=== PATIENT | male | born 1960 | race Caucasian/White ===

== ENCOUNTER 2016-08-28 18:49 | Emergency (ER) | payer OTHER ==
[~2016-08-28] VITALS: Ht 180.3 cm; Wt 85.0 kg
[~2016-08-28 18:49] MED LIST: BENA25TA3 PO; CEPH-460 PO; PRED20 PO
[2016-08-28 18:51] VITALS: BP 131/73; PULSE 100; RESP 20; TEMP 98.7; O2SAT 89
[2016-08-28] MEDS ORDERED: diphenhydrAMINE HCL 50 MG/ML VIAL IV PUSH ONE (19:30)
[2016-08-28] MEDS ORDERED: methylPREDNISolone SOD SUCC 125 MG/2 ML VIAL IV PUSH ONE (19:30)
--- NOTE | 2016-08-28 20:02 | PD ---
HPI Chief Complaint: Skin Problem Time Seen by Provider: 19:27 Travel History International Travel<30 days: No Contact w/Intl Traveler<30days: No Traveled to known affect area: No History of Present Illness HPI 56-year-old male with history of cellulitis on his left arm seen in May, had been prescribed antibiotics, and he states that since then he had some kind of allergic reaction, had rash, itchiness, scaling and peeling of his skin all over his body, had been followed up by ER physician and primary care doctor, had been prescribed an antibiotic and symptomatic relief for it, but he states that he had ran out antibiotic but the symptoms have not gone away. He denies any difficulty swallowing, sore throat, chest pains, shortness of breath, fevers , or any other symptoms. He states that he is not sure why it is continuing, states that he thinks he is allergic to poison sumac and that may be what's going on. He has been using calamine lotion on the areas. 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) Tetanus Vaccination: Unknown Influenza Vaccination: No Social History Alcohol Use: Yes (8 beers per week) Tobacco Use: Yes (4 per day) Substance Use: No Allergies-Medications (Allergen,Severity, Reaction): Coded Allergies: Cortisone (Verified Allergy, Severe, "Blows me up", 08/28/16) Hydrocortisone (Verified Allergy, Severe, EDEMA, 08/28/16) *MDRO Multi-Drug Resistant Organism (Verified Adverse Reaction, Unknown, ) MRSA (arm-05/09/16) Reported Meds & Prescriptions Reported Meds & Active Scripts Active No Active Prescriptions or Reported Medications Review of Systems Except as stated in HPI: all other systems reviewed are Neg Physical Exam Narrative GENERAL: Well-nourished, well-developed middle age white male patient in no acute distress. SKIN: Warm and dry. Patient has significant scaling erythematous generalized skin rash most pronounced in the arms and legs and up to the posterior trunk areas as well as face. Excluding the palms and soles. HEAD: Normocephalic. EYES: No scleral icterus. No injection or drainage. ENT: Mucosa pink and moist. No erythema or exudates. No uvular edema. No uvular , palatal, or tonsillar deviation. Airway patent. No angioedema. NECK: Supple, trachea midline. CARDIOVASCULAR: Regular rate and rhythm without murmurs, gallops, or rubs. RESPIRATORY: Breath sounds equal bilaterally. No accessory muscle use. GASTROINTESTINAL: Abdomen soft, non-tender, nondistended. MUSCULOSKELETAL: No cyanosis, or edema. BACK: Nontender without obvious deformity. No CVA tenderness. Data Data Last Documented VS Vital Signs Date Time Temp Pulse Resp B/P Pulse Ox O2 Delivery O2 Flow Rate FiO2 08/28/16 19:31 20 08/28/16 18:51 98.7 100 131/73 89 Room Air Orders Complete Blood Count With Diff (08/28/16 19:27) Basic Metabolic Panel (Bmp) (08/28/16 19:27) Blood Culture (08/28/16 19:27) Methylprednisolone So Succ Inj (Solumedr (08/28/16 19:30) Diphenhydramine Inj (Benadryl Inj) (08/28/16 19:30) MDM Medical Decision Making Medical Screen Exam Complete: Yes Emergency Medical Condition: Yes Medical Record Reviewed: Yes Differential Diagnosis Drug eruption versus contact dermatitis versus fungal infection Narrative Course Patient was given Solu-Medrol, Benadryl in the ER. He has no signs of angioedema or mucous membrane involvement. Evaluation of previous visit shows that he has been here for similar symptoms last month as well. Mandatory consult was placed for dermatology for what appears to be ongoing skin reaction to unknown substance. Physician Communication Physician Communication Case is signed out to BRIONNA Briceño awaiting lab work. Diagnosis Primary Impression: Allergic reaction Med/Other Pt SpecificInfo: Prescription(s) given Scripts Diphenhydramine (Benadryl Allergy)25 Mg Tab25 Mg PO Q6H PRN (ALLERGIES) #20 TAB Ref 0 Prov:Dayne Lozano MD 08/28/16 Prednisone (21) 10 mg tab Dose Pack 10 Mg Pack10 Mg PO DIRECTED #1 DSPK Ref 0 Prov:Dayne Lozano MD 08/28/16 Disposition: 01 DISCHARGE HOME Condition: Stable Dayne Lozano MD Aug 28, 2016 20:02
[2016-08-28] MEDS ORDERED: PRED10PA PO (20:54)
[2016-08-28] MEDS ORDERED: BENA25TA3 PO (20:54)
[2016-08-28 21:01] LABS: BICARBONATE 22.6 MEQ/L (21.0-32.0)
[2016-08-28 21:02] LABS: POTASSIUM 4.4 MEQ/L (3.5-5.1)
[2016-08-28 21:27] LABS: CALCIUM-PROTEIN CORRECTED 8.3 MG/DL (8.5-10.1)
[2016-08-28 21:54] LABS: AUTOMATED NEUTROPHIL # 6.9 TH/MM3 (1.8-7.7); BASOPHIL # 0.1 TH/MM3 (0-0.2); BASOPHIL % 0.9 % (0.0-2.0); EOSINOPHIL # 0.9 TH/MM3 (0-0.4); HEMATOCRIT 33.9 % (39.0-51.0); HEMO FLAGS DIFF FINAL; LYMPH % 10.2 % (9.0-44.0); MEAN CELL VOLUME 85.9 FL (80.0-100.0); MEAN CORPUSCULAR HEMOGLOBIN 29.2 PG (27.0-34.0); MEAN CORPUSCULAR HGB CONC 33.9 % (32.0-36.0); MONO % 10.5 % (0.0-8.0); NEUT % 69.4 % (16.0-70.0); PLATELET COUNT 457 TH/MM3 (150-450); RED BLOOD COUNT 3.95 MIL/MM3 (4.50-5.90); RED CELL DISTRIBUTION WIDTH 16.1 % (11.6-17.2)
--- NOTE | 2016-08-28 22:15 | PD ---
Physical Exam Date Seen by Provider: Aug 28, 2016 Time Seen by Provider: 22:09 Data Data Last Documented VS Vital Signs Date Time Temp Pulse Resp B/P Pulse Ox O2 Delivery O2 Flow Rate FiO2 08/28/16 19:31 20 08/28/16 18:51 98.7 100 131/73 89 Room Air Orders Complete Blood Count With Diff (08/28/16 19:27) Basic Metabolic Panel (Bmp) (08/28/16 19:27) Blood Culture (08/28/16 19:27) Methylprednisolone So Succ Inj (Solumedr (08/28/16 19:30) Diphenhydramine Inj (Benadryl Inj) (08/28/16 19:30) Mandatory Outpatient Referral (08/28/16 20:51) Protein Corrected Calcium(Pcc) (08/28/16 20:10) Labs Laboratory Tests Test 08/28/16 08/28/16 20:10 21:00 Sodium Level 133 MEQ/L Potassium Level 4.4 MEQ/L Chloride Level 101 MEQ/L Carbon Dioxide Level 22.6 MEQ/L Anion Gap 9 MEQ/L Blood Urea Nitrogen 9 MG/DL Creatinine 1.17 MG/DL Estimat Glomerular Filtration 64 ML/MIN Rate Random Glucose 72 MG/DL Calcium Level 7.4 MG/DL Protein Corrected Calcium 8.3 MG/DL Total Protein 5.5 GM/DL White Blood Count 10.0 TH/MM3 Red Blood Count 3.95 MIL/MM3 Hemoglobin 11.5 GM/DL Hematocrit 33.9 % Mean Corpuscular Volume 85.9 FL Mean Corpuscular Hemoglobin 29.2 PG Mean Corpuscular Hemoglobin 33.9 % Concent Red Cell Distribution Width 16.1 % Platelet Count 457 TH/MM3 Mean Platelet Volume 6.8 FL Neutrophils (%) (Auto) 69.4 % Lymphocytes (%) (Auto) 10.2 % Monocytes (%) (Auto) 10.5 % Eosinophils (%) (Auto) 9.0 % Basophils (%) (Auto) 0.9 % Neutrophils # (Auto) 6.9 TH/MM3 Lymphocytes # (Auto) 1.0 TH/MM3 Monocytes # (Auto) 1.1 TH/MM3 Eosinophils # (Auto) 0.9 TH/MM3 Basophils # (Auto) 0.1 TH/MM3 CBC Comment DIFF FINAL Differential Comment MDM Supervised Visit with ARTHUR: No Narrative Course This patient was initially evaluated by . Please see her note for full H&P. Lab work was pending when I assumed care of the patient. No leukocytosis or anemia, no concerning abnormalities of the chemistries. Blood cultures pending. Mandatory outpatient follow-up with dermatology placed. Patient was prescribed Benadryl and prednisone. He is stable and discharged for outpatient follow-up with dermatology. Diagnosis Primary Impression: Allergic reaction Qualified Code: T78.40XA - Allergic reaction, initial encounter Referrals: Bicycle Inspector Additional Instruction: Mandatory consult with a snack bar cook has been placed on your behalf. Assure that your contact information with registration is correct. You will receive a phone call from the hospital or the doctor's office in the next few days for a follow-up appointment. In the meantime take cool showers and avoid sun exposure to avoid worsening of the condition. Take medication as prescribed. Follow-up with the snack bar cook as discussed above. Return to the ED for any urgent or emergent medical condition. Med/Other Pt SpecificInfo: Prescription(s) given Scripts Diphenhydramine (Benadryl Allergy)25 Mg Tab25 Mg PO Q6H PRN (ALLERGIES) #20 TAB Ref 0 Prov:Dayne Lozano MD 08/28/16 Prednisone (21) 10 mg tab Dose Pack 10 Mg Pack10 Mg PO DIRECTED #1 DSPK Ref 0 Prov:Dayne Lozano MD 08/28/16 Disposition: 01 DISCHARGE HOME Condition: Stable Keyanna Tillman Aug 28, 2016 22:15
[2016-08-28 22:43] VITALS: BP 114/60
== END 2016-08-29 00:04 | disposition home or self-care (01) ==
LOC: NEPA 18:49
DX: T78.40XA Allergy, unspecified, initial encounter (principal); B95.62 Methicillin resistant Staphylococcus aureus infection as the cause of diseases classified elsewhere
CPT/HCPCS: 80048; 84155; 85025; 86403; 87040; 87077; 87186; 87205; 96374; 96375; 99283; J1200; J2930

== ENCOUNTER 2016-09-03 19:21 | Inpatient (IN) | payer OTHER ==
[~2016-09-03] VITALS: Ht 180.3 cm; Wt 77.9 kg
[~2016-09-03 19:21] MED LIST changes: -CEPH-460 PO; +PRED10PA PO; -PRED20 PO
[2016-09-03 19:23] VITALS: BP 121/69; PULSE 88; RESP 16; TEMP 97.9; O2SAT 96
[2016-09-03 20:13] VITALS: BP 115/69; PULSE 77; RESP 16; O2SAT 98
[2016-09-03] MEDS ORDERED: methylPREDNISolone SOD SUCC 125 MG/2 ML VIAL IV PUSH ONE (20:15)
[2016-09-03] MEDS ORDERED: VANCOMYCIN INJ 1,000 MG in SODIUM CHLOR 0.9% 250 ML INJ 250 ML IV ONE (20:30)
--- NOTE | 2016-09-03 20:35 | PD ---
HPI Chief Complaint: Skin Problem Time Seen by Provider: 20:32 Travel History International Travel<30 days: No Contact w/Intl Traveler<30days: No Traveled to known affect area: No History of Present Illness HPI Patient is a 56-year-old male presenting to the emergency department due to a positive set of blood cultures. Patient was notified this afternoon that he needed to return for reevaluation. He has no new complaints today. He continues to report dry, flaky, itchy skin on his bilateral upper extremities, abdomen, back, legs. He states this started in April after an insect bite. He has no wheezing, shortness of breath, chest pain. He denies any new medications. 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) Immunizations Current: Yes Tetanus Vaccination: Unknown Influenza Vaccination: No Social History Alcohol Use: Yes (8 beers per week) Tobacco Use: Yes (4 per day) Substance Use: No Allergies-Medications (Allergen,Severity, Reaction): Coded Allergies: Cortisone (Verified Allergy, Severe, "Blows me up", 09/03/16) Hydrocortisone (Verified Allergy, Severe, EDEMA, 09/03/16) *MDRO Multi-Drug Resistant Organism (Verified Adverse Reaction, Unknown, ) MRSA:arm-05/09/16, blood-08/28/16 Reported Meds & Prescriptions Reported Meds & Active Scripts Active Review of Systems Except as stated in HPI: all other systems reviewed are Neg Skin: Positive Rash, Positive Itching, Positive Change in Pigmentation Physical Exam Narrative GENERAL: Well-developed, well-nourished, alert male. S2 comfortably in no acute distress. SKIN: Bilateral upper extremities with mild edema, erythema, excoriations. Skin is peeling, appears scalded. Dry flaky skin to anterior chest wall, abdomen, back. HEAD: Atraumatic. Normocephalic. EYES: Pupils equal and round. No scleral icterus. No injection or drainage. ENT: No nasal bleeding or discharge. Mucous membranes pink and moist. NECK: Trachea midline. No JVD. CARDIOVASCULAR: Regular rate and rhythm. No murmur appreciated. RESPIRATORY: No accessory muscle use. Clear to auscultation. Breath sounds equal bilaterally. GASTROINTESTINAL: Abdomen soft, non-tender, nondistended. Hepatic and splenic margins not palpable. MUSCULOSKELETAL: No obvious deformities. No clubbing. No cyanosis. No edema. NEUROLOGICAL: Awake and alert. No obvious cranial nerve deficits. Motor grossly within normal limits. Normal speech. PSYCHIATRIC: Appropriate mood and affect; insight and judgment normal. Data Data Last Documented VS Vital Signs Date Time Temp Pulse Resp B/P Pulse Ox O2 Delivery O2 Flow Rate FiO2 09/03/16 20:13 77 16 09/03/16 20:13 115/69 98 Room Air 09/03/16 19:23 97.9 Orders Blood Culture (09/03/16 20:11) Complete Blood Count With Diff (09/03/16 20:11) Basic Metabolic Panel (Bmp) (09/03/16 20:11) Methylprednisolone So Succ Inj (Solumedr (09/03/16 20:15) Vancomycin Inj (Vancomycin Inj) (09/03/16 20:30) Cetirizine (Zyrtec) (09/03/16 21:00) Labs Laboratory Tests Test 09/03/16 20:30 White Blood Count 11.6 TH/MM3 Red Blood Count 4.16 MIL/MM3 Hemoglobin 12.0 GM/DL Hematocrit 35.6 % Mean Corpuscular Volume 85.5 FL Mean Corpuscular Hemoglobin 28.8 PG Mean Corpuscular Hemoglobin 33.7 % Concent Red Cell Distribution Width 16.0 % Platelet Count 516 TH/MM3 Mean Platelet Volume 6.6 FL Neutrophils (%) (Auto) 59.0 % Lymphocytes (%) (Auto) 17.5 % Monocytes (%) (Auto) 6.5 % Eosinophils (%) (Auto) 16.2 % Basophils (%) (Auto) 0.8 % Neutrophils # (Auto) 6.8 TH/MM3 Lymphocytes # (Auto) 2.0 TH/MM3 Monocytes # (Auto) 0.8 TH/MM3 Eosinophils # (Auto) 1.9 TH/MM3 Basophils # (Auto) 0.1 TH/MM3 CBC Comment DIFF FINAL Differential Comment Sodium Level 136 MEQ/L Potassium Level 4.5 MEQ/L Chloride Level 99 MEQ/L Carbon Dioxide Level 28.1 MEQ/L Anion Gap 9 MEQ/L Blood Urea Nitrogen 11 MG/DL Creatinine 1.17 MG/DL Estimat Glomerular Filtration 64 ML/MIN Rate Random Glucose 80 MG/DL Calcium Level 8.3 MG/DL [facility] Medical Decision Making Medical Screen Exam Complete: Yes Emergency Medical Condition: Yes Medical Record Reviewed: Yes Interpretation(s) Vital Signs Date Time Temp Pulse Resp B/P Pulse Ox O2 Delivery O2 Flow Rate FiO2 09/03/16 20:13 77 16 09/03/16 20:13 77 16 115/69 98 Room Air 09/03/16 19:23 97.9 88 16 121/69 96 Differential Diagnosis Scalded skin syndrome versus dermatitis versus eczema versus bacteremia versus cellulitis versus other Narrative Course Patient is a 56-year-old male presenting to the emergency Department due to a set of positive blood cultures. Blood cultures drawn on 08/28/16, once that was positive for MRSA. Patient has what appears to be scalded skin on his bilateral upper extremities as well as dry flaky skin on his abdomen and chest and back and legs. His vital signs are currently stable. He has mildly elevated white count with left shift. Blood cultures have been repeated, patient was given IV Solu-Medrol and IV vancomycin in the emergency department. Discussed with my attending physician who recommended patient be brought in under observation. Dr. Miller accepted admission on behalf of Dr. Leone. Diagnosis Primary Impression: Positive blood culture Additional Impression: Skin infection Condition: Stable Alexandra Miller Sep 03, 2016 20:35
[2016-09-03 20:45] LABS: AUTOMATED NEUTROPHIL # 6.8 TH/MM3 (1.8-7.7); BASOPHIL # 0.1 TH/MM3 (0-0.2); BASOPHIL % 0.8 % (0.0-2.0); EOSINOPHIL # 1.9 TH/MM3 (0-0.4); EOSINOPHIL % 16.2 % (0.0-4.0); HEMATOCRIT 35.6 % (39.0-51.0); HEMO FLAGS DIFF FINAL; LYMPH % 17.5 % (9.0-44.0); MEAN CELL VOLUME 85.5 FL (80.0-100.0); MEAN CORPUSCULAR HEMOGLOBIN 28.8 PG (27.0-34.0); MEAN CORPUSCULAR HGB CONC 33.7 % (32.0-36.0); MONO % 6.5 % (0.0-8.0); PLATELET COUNT 516 TH/MM3 (150-450); RED BLOOD COUNT 4.16 MIL/MM3 (4.50-5.90); WHITE BLOOD COUNT 11.6 TH/MM3 (4.0-11.0)
[2016-09-03] MEDS ORDERED: CETIRIZINE HCL 10 MG TAB PO ONE (21:00)
[2016-09-03 21:17] LABS: BICARBONATE 28.1 MEQ/L (21.0-32.0); POTASSIUM 4.5 MEQ/L (3.5-5.1)
[2016-09-03] MEDS ORDERED: VANCOMYCIN INJ 1,000 MG in SODIUM CHLOR 0.9% 250 ML INJ 250 ML IV SCH (23:00)
[2016-09-03] MEDS: SODIUM CHLOR 0.45% 1000 ML INJ 1,000 ML IV SCH (23:37)
[2016-09-04 00:59] VITALS: BP 114/66; PULSE 77; RESP 19; TEMP 98.2; O2SAT 93
[2016-09-04 04:26] LABS: HEMATOCRIT 35.6 % (39.0-51.0); MEAN CORPUSCULAR HEMOGLOBIN 28.6 PG (27.0-34.0); MEAN CORPUSCULAR HGB CONC 33.2 % (32.0-36.0); PLATELET COUNT 476 TH/MM3 (150-450); RED BLOOD COUNT 4.14 MIL/MM3 (4.50-5.90); RED CELL DISTRIBUTION WIDTH 16.3 % (11.6-17.2); REVIEW FLAG FINAL; WHITE BLOOD COUNT 9.8 TH/MM3 (4.0-11.0)
[2016-09-04 04:27] VITALS: BP 115/65; PULSE 76; RESP 19; TEMP 98; O2SAT 94
[2016-09-04 04:42] LABS: BICARBONATE 27.3 MEQ/L (21.0-32.0); POTASSIUM 4.3 MEQ/L (3.5-5.1)
--- NOTE | 2016-09-04 10:57 | HHI.HP ---
[facility] Sulaiman Mcqueen M.D. Admission Diagnosis positive blood culture, skin infection Diagnoses: Chief Complaint: Positive blood culture Travel History International Travel<30 Days: No Contact w/Intl Traveler <30 Da: No Traveled to Known Affected Are: No History of Present Illness This is a 56-year-old male who presented to the emergency department after patient was informed that he has positive blood cultures. Of note, patient was initially seen here in April 2016, patient was found to have cellulitis at that time which allegedly started with an insect bite. Wound culture grew MRSA and group A streptococcus. He was started on antibiotics at that time which he finished. After that, he was placed on a second course of antibiotics by Dr. Mcqueen, his primary care physician. In June, he went to the hospital for upper extremity swelling, was found to have another episode of cellulitis, he was discharged from the emergency department with Keflex. He finished his course of Keflex. He was allegedly restarted on antibiotics by his primary care doctor again in July which he finished 2 weeks ago. Subsequently, he presented to the hospital with bilateral upper extremity itching, was thought that he might be having an allergic reaction, discharged from the emergency department on prednisone and Benadryl. Blood culture was done at that time, but culture came back positive for MRSA 1 out of 4 bottles. She was then called to come back to the hospital hence his presentation. He however denies any symptoms other than itching of bilateral upper extremities which has since improved. Patient denies any fever, chills, shortness of breath, urinary symptoms, abdominal pain, diarrhea, skin abscess, or anyone. He has chronic dry cough from smoking. Review of Systems ROS Limitations: Other (All other pertinent systems were reviewed and are negative.) Past Family Social History Past Medical History Melanoma Past Surgical History Globe enucleation with prosthesis placement Reported Medications None Allergies: Coded Allergies: Cortisone (Verified Allergy, Severe, "Blows me up", 09/03/16) Hydrocortisone (Verified Allergy, Severe, EDEMA, 09/03/16) *MDRO Multi-Drug Resistant Organism (Verified Adverse Reaction, Unknown, ) MRSA:arm-05/09/16, blood-08/28/16 Family History No history of diabetes or hypertension in the family. Social History Smokes about 6 cigarettes daily, no significant alcohol use Physical Exam Vital Signs Vital Signs Date Time Temp Pulse Resp B/P Pulse Ox O2 Delivery O2 Flow Rate FiO2 09/04/16 04:27 98.0 76 19 115/65 94 09/04/16 00:59 98.2 77 19 114/66 93 09/03/16 20:13 77 16 09/03/16 20:13 77 16 115/69 98 Room Air 09/03/16 19:23 97.9 88 16 121/69 96 Physical Exam GENERAL: Not in acute distress, well-nourished. HEAD: Atraumatic. Normocephalic. EYES: PERRL, full EOMs, no jaundice, nonicteric, pink conjunctivae , right eye prosthesis. ENT: Nose without bleeding, purulent drainage. Airway patent. NECK: Trachea midline, no mass, no obvious thyromegaly. CARDIOVASCULAR: Regular rate and rhythm without murmurs, gallops, or rubs. RESPIRATORY: Decreased breath sounds symmetrically. GASTROINTESTINAL: Abdomen soft, normal bowel sounds, non-tender, nondistended. No hepato-splenomegaly or palpable mass. No guarding. VASQUEZ and exam deferred. MUSCULOSKELETAL: Extremities without clubbing, cyanosis, or edema. INTEGUMENTARY: Bilateral upper extremities with mild swelling, mild erythema, excoriation, skin is almost leathery, peeling, flaky, mild warmth, no discharge , no crepitus. There is also dry flaky skin anterior chest wall with mild erythema. Bilateral The Same but Less Severe. NEUROLOGICAL: Awake, alert, oriented 3. No obvious cranial nerve deficits. Moves all 4 extremities, muscle strength testing 5 over 5. No focal neurologic deficits. PSYCHIATRIC: Normal mood, appropriate affect. Laboratory Laboratory Tests Test 09/03/16 09/04/16 20:30 03:44 White Blood Count 11.6 9.8 Red Blood Count 4.16 4.14 Hemoglobin 12.0 11.8 Hematocrit 35.6 35.6 Mean Corpuscular Volume 85.5 86.0 Mean Corpuscular Hemoglobin 28.8 28.6 Mean Corpuscular Hemoglobin 33.7 33.2 Concent Red Cell Distribution Width 16.0 16.3 Platelet Count 516 476 Mean Platelet Volume 6.6 6.6 Neutrophils (%) (Auto) 59.0 Lymphocytes (%) (Auto) 17.5 Monocytes (%) (Auto) 6.5 Eosinophils (%) (Auto) 16.2 Basophils (%) (Auto) 0.8 Neutrophils # (Auto) 6.8 Lymphocytes # (Auto) 2.0 Monocytes # (Auto) 0.8 Eosinophils # (Auto) 1.9 Basophils # (Auto) 0.1 CBC Comment DIFF FINAL Differential Comment Sodium Level 136 137 Potassium Level 4.5 4.3 Chloride Level 99 101 Carbon Dioxide Level 28.1 27.3 Anion Gap 9 9 Blood Urea Nitrogen 11 13 Creatinine 1.17 1.14 Estimat Glomerular Filtration 64 66 Rate Random Glucose 80 160 Calcium Level 8.3 8.0 Date/Time Procedure Status Source Growth 09/03/16 20:30 Aerobic Blood Culture Received Blood Peripheral Pending 09/03/16 20:30 Anaerobic Blood Culture Received Blood Peripheral Pending Result Diagram: 09/04/16 0344 09/04/16 0344 Imaging Last Impressions Chest X-Ray 09/04/16 0000 Signed Impressions: Service Date/Time: Sunday, September 04, 2016 11:16 - CONCLUSION: No acute cardiopulmonary disease identified. Alberto Rosales MD Assessment and Plan Assessment and Plan This is a 56-year-old male presenting with a positive blood culture for MRSA Rule out MRSA bacteremia-patient is asymptomatic. Previously had MRSA from cellulitis in May, had 3 courses of antibiotics. Patient presented about a week ago to the emergency department with upper extremity itching, was started on prednisone and Benadryl, these has improved. Blood culture came back positive for MRSA. Check urinalysis, check chest x-ray, repeat blood culture, results pending, start vancomycin for now. Infectious disease was consulted. Leukocytosis very mild, now resolved. Monitor closely. Bilateral upper extremity scaling-needs a formal dermatology consult as outpatient, possible fungal infection as well including anterior chest, will give emollients and miconazole cream, Benadryl for itching. Thrombocytosis-may be a normal variant. Monitor. DVT prophylaxis: Patient is low risk, SCDs. Physician Certification 2 Midnight Certification Type: Admission for Inpatient Services Order for Inpatient Services The services are ordered in accordance with Medicare regulations or non- Medicare payer requirements, as applicable. In the case of services not specified as inpatient-only, they are appropriately provided as inpatient services in accordance with the 2-midnight benchmark. Estimated LOS (days): 2 days is the estimated time the patient will need to remain in the hospital, assuming treatment plan goals are met and no additional complications. Post-Hospital Plan: Home Vladimir Oshea MD Sep 04, 2016 10:57
[2016-09-04] MEDS ORDERED: oxyCODONE/ACETAMINOPHEN 10 MG/325 MG TAB PO PRN (11:00)
[2016-09-04] MEDS ORDERED: NALOXONE HCL 0.4 MG/ML AMP IV PRN (11:00)
[2016-09-04] MEDS ORDERED: Vancomycin Consult Pharmacy 1 EA OTHER SCH (11:00)
[2016-09-04] MEDS ORDERED: ACETAMINOPHEN 325 MG TAB PO PRN (11:00)
[2016-09-04] MEDS ORDERED: ACETAMINOPHEN/HYDROcodone 325 MG/5 MG TAB PO PRN (11:00)
--- NOTE | 2016-09-04 11:53 | RADRPT ---
EXAM DATE/TIME: 09/04/2016 11:16 [facility] COMPARISON: No previous studies available for comparison. INDICATIONS : Evaluate fro consolidation MEDICAL HISTORY : None. SURGICAL HISTORY : None. ENCOUNTER: Initial ACUITY: 1 day PAIN SCORE: 0/10 LOCATION: Bilateral chest FINDINGS: PA and lateral views of the chest. The lungs are clear. Cardiomediastinal silhouette within normal li mits. No evidence of pleural effusion or pneumothorax. CONCLUSION: No acute cardiopulmonary disease identified. Alberto Rosales MD on September 04, 2016 at 11:51 Board Certified Radiologist. This report was verified electronically.
[2016-09-04] MEDS: FAMOTIDINE 20 MG TAB PO SCH ×2 (12:19→19:55)
[2016-09-04] MEDS: SODIUM CHLOR 0.45% 1000 ML INJ 1,000 ML IV SCH (12:19)
[2016-09-04 13:09] VITALS: BP 130/60; PULSE 80; RESP 20; O2SAT 95
[2016-09-04] MEDS ORDERED: diphenhydrAMINE HCL 25 MG CAP PO PRN (14:00)
[2016-09-04] MEDS: VANCOMYCIN INJ 1,500 MG in SODIUM CHLORID 0.9% 500 ML INJ 500 ML IV SCH (14:03)
[2016-09-04] MEDS: LACTIC ACID (AMMONIUM LACTATE) 12% LOTION 225 GM BTL TOPICAL SCH ×4 (15:00→23:24)
--- NOTE | 2016-09-04 15:53 | PD.ID.CON ---
History of Present Illness Service ID Consult Requested By Reason for Consult Evaluation and Mment of MRSA bacteremia, cellulitis. Primary Care Physician Sulaiman Mcqueen M.D. Diagnoses: History of Present Illness Mr. Barker is a 56-year-old male with past medical history significant for melanoma, chronic skin changes started in April 2016, history of recurrent cellulitis with multiple visits to the emergency department. Off note patient was initially seen in April 2016 and he was found to have cellulitis at that time. Allegedly started with an insect bite. Wound cultures grew MRSA and group A strep. Patient was started on antibiotics at that time which he reportedly finished the course. After that his primary care physician Dr. Casey Mcqueen may have given some antibiotics. In June he went to a hospital unknown for eczema and cellulitis and again treated with Keflex. He reports that in July again he was seen by his PCP and underwent a two-week course of antibiotics. He again presented to the hospital with bilateral upper extremity itching more recently and it was thought that maybe he was having an allergic reaction to the antibiotic prescribed and was given prednisone and Benadryl and discharged. Blood culture was done at that time and the culture is now positive for MRSA. He was called back to the hospital due to the positive blood cultures. He denies any symptoms other than itching of bilateral upper extremities which has since improved. He also thinks that his upper extremity cellulitis is improved. He denies any fever or chills shortness of breath or urinary symptoms. He denies any abdominal pain and diarrhea. On further questioning he reports to me that his blood cultures are drawn off another sites on his upper extremities where he has skin lesions. He reports his of dry cough from smoking. He does not know if any vitamin deficiencies. He does not think he has been worked up for a skin diagnosis. Patient was difficult and did not provide much of history. Most of the history was obtained from review of medical records. Patient has never seen a urinalysis technician. He does presents to the emergency department was to his primary care physician. Infectious disease is consulted for evaluation and management of MRSA bacteremia and cellulitis. Review of Systems ROS Limitations: Poor Historian (refused to provide any history most of the history was obtained from review of medical records.) Past Family Social History Allergies: Coded Allergies: Cortisone (Verified Allergy, Severe, "Blows me up", 09/03/16) Hydrocortisone (Verified Allergy, Severe, EDEMA, 09/03/16) *MDRO Multi-Drug Resistant Organism (Verified Adverse Reaction, Unknown, ) MRSA:arm-05/09/16, blood-08/28/16 Past Medical History Melanoma Past Surgical History Globe enucleation with prosthesis placement Reported Medications Reported Meds & Active Scripts Active Active Ordered Medications Current Medications Medications (Trade) Dose Ordered Sig/Zane Route Start Time Stop Time Status Last Admin Famotidine 20 mg 20 mg BID PO 09/04/16 09:00 09/04/16 12:19 Vancomycin HCl 1500 mg/Sodium Chloride 515 ml @ 257.5 mls/ hr Q18H IV 09/04/16 13:00 09/04/16 14:03 (Vancomycin Consult Pharmacy) 0 ml @ 0 mls/hr UNSCH OTHER 09/04/16 11:00 (Tylenol) 650 mg Q6H PRN PO 09/04/16 11:00 (Fowler 5-325 Mg) 1 tab Q4H PRN PO 09/04/16 11:00 (Percocet 10-325 Mg) 1 tab Q6H PRN PO 09/04/16 11:00 (Narcan Inj) 0.4 mg UNSCH PRN IV 09/04/16 11:00 Miscellaneous Information SPECIFIC LAB TO BE DRAWN:[facility]... ONCE ONCE XX 09/06/16 00:45 09/06/16 00:46 (Lac-Hydrin 12% Lotion) 1 applic Q6HR TOPICAL 09/04/16 15:00 (Micatin 2% Cream) 1 applic Q12HR TOPICAL 09/04/16 21:00 (Benadryl) 25 mg Q6HR PRN PO 09/04/16 14:00 (Lac-Hydrin 12% Lotion) 1 applic BID TOPICAL 09/04/16 21:00 UNV Family History Could not be obtained patient not cooperative. Social History Smokes about 6 cigarettes daily, no significant alcohol use. Lives with a partner. Not . Partner is not the power of glassware maker. Physical Exam Vital Signs Vital Signs Date Time Temp Pulse Resp B/P Pulse Ox O2 Delivery O2 Flow Rate FiO2 09/04/16 13:09 80 20 130/60 95 09/04/16 04:27 98.0 76 19 115/65 94 09/04/16 00:59 98.2 77 19 114/66 93 09/03/16 20:13 77 16 09/03/16 20:13 77 16 115/69 98 Room Air 09/03/16 19:23 97.9 88 16 121/69 96 Physical Exam GENERAL: Poorly nourished, well-developed patient, in no apparent distress. SKIN: Chronic dry skin changes. Laying of skin in some places noted. Cracking of skin noted in. Is also perioral dryness. Cracking of the angles of the mouth noted. Patient was picking on his skin during my visit with him. HEAD: Atraumatic. Normocephalic. No temporal or scalp tenderness. EYES: Pupils equal round and reactive. Extraocular motions intact. No scleral icterus. No injection or drainage. ENT: Nose without bleeding, purulent drainage or septal hematoma. Throat without erythema, tonsillar hypertrophy or exudate. Uvula midline. Airway patent. NECK: Trachea midline. Supple, nontender, no meningeal signs. CARDIOVASCULAR: Heart sounds audible. No murmur appreciated. RESPIRATORY: Clear to auscultation. Breath sounds equal bilaterally. GASTROINTESTINAL: Abdomen soft, non-tender, nondistended. MUSCULOSKELETAL: Bilateral lower extremities with significant erythema, edema noted. Patient refused to take his socks and shoes out. Bilateral upper extremity with chronic skin changes. His lower extremities appeared to be the source of infection likely had cellulitis upper extremity with mild cellulitis. NEUROLOGICAL: Awake and alert. Grossly nonfocal. Psych not cooperative at times. Refused to remove her shoes and socks for examination. IV line sites with no evidence of infection. Laboratory Laboratory Tests Test 09/03/16 09/04/16 20:30 03:44 White Blood Count 11.6 9.8 Red Blood Count 4.16 4.14 Hemoglobin 12.0 11.8 Hematocrit 35.6 35.6 Mean Corpuscular Volume 85.5 86.0 Mean Corpuscular Hemoglobin 28.8 28.6 Mean Corpuscular Hemoglobin 33.7 33.2 Concent Red Cell Distribution Width 16.0 16.3 Platelet Count 516 476 Mean Platelet Volume 6.6 6.6 Neutrophils (%) (Auto) 59.0 Lymphocytes (%) (Auto) 17.5 Monocytes (%) (Auto) 6.5 Eosinophils (%) (Auto) 16.2 Basophils (%) (Auto) 0.8 Neutrophils # (Auto) 6.8 Lymphocytes # (Auto) 2.0 Monocytes # (Auto) 0.8 Eosinophils # (Auto) 1.9 Basophils # (Auto) 0.1 CBC Comment DIFF FINAL Differential Comment Sodium Level 136 137 Potassium Level 4.5 4.3 Chloride Level 99 101 Carbon Dioxide Level 28.1 27.3 Anion Gap 9 9 Blood Urea Nitrogen 11 13 Creatinine 1.17 1.14 Estimat Glomerular Filtration 64 66 Rate Random Glucose 80 160 Calcium Level 8.3 8.0 Date/Time Procedure Status Source Growth 09/03/16 20:30 Aerobic Blood Culture - Preliminary Resulted Blood Peripheral NO GROWTH IN 1 DAY 09/03/16 20:30 Anaerobic Blood Culture - Preliminary Resulted Blood Peripheral NO GROWTH IN 1 DAY Result Diagram: 09/04/16 0344 09/04/16 0344 Imaging Last Impressions Chest X-Ray 09/04/16 0000 Signed Impressions: Service Date/Time: Sunday, September 04, 2016 11:16 - CONCLUSION: No acute cardiopulmonary disease identified. Alberto Rosales MD Assessment and Plan Assessment and Plan MRSA bacteremia likely source cellulitis. Bilateral lower extremity cellulitis. Bilateral upper extremity cellulitis. MRSA and strep and upper extremity cultures. Likely infection. Eosinophilia: likely secondary to skin issues. Recs: Continue vancomycin IV target trough 15-20 It is extremely difficult to obtain blood cultures in this patient without having penetrated his already compromised skin. He likely has colonization of MRSA on the skin. Unsure of this MRSA in the blood as true infection or just a contamination while collecting blood culture given his chronic skin condition. On the other hand he does have bilateral lower extremity skin changes suggestive of cellulitis. Unfortunately patient would not let me examine his bilateral lower extremities and requested to socks and shoes. I've asked for a nursing order to have the patient shower as well as have shoes and socks removed and patient be given hospital garments. Hopefully I can examine his bilateral lower extremities tomorrow to make further determination if podiatry consult is needed. For working up his skin conditions I am ordering a zinc level, B12 level, DEN and RA level. Patient definitely needs a referral to dermatology as outpatient to prevent these recurrent admissions. Lac-Hydrin for local application after the patient has a shower. Discussed with patient as well as RN. Cindy Lord MD Sep 04, 2016 15:52
[2016-09-04 18:43] LABS: ALKALINE PHOSPHATASE 123 U/L (45-117); ALT (GPT) 24 U/L (12-78); AST (GOT) 31 U/L (15-37); INDIRECT BILIRUBIN 0.1 MG/DL (0.0-0.8); TOTAL BILIRUBIN ADULT 0.2 MG/DL (0.2-1.0)
[2016-09-04 20:05] VITALS: BP 111/49; PULSE 72; RESP 18; TEMP 99.2; O2SAT 93
[2016-09-04] MEDS: MICONAZOLE NITRATE 2% CREAM 15 GM TOPICAL SCH (23:25)
[2016-09-05 05:39] LABS: AUTOMATED NEUTROPHIL # 6.2 TH/MM3 (1.8-7.7); BASOPHIL # 0.1 TH/MM3 (0-0.2); BASOPHIL % 1.2 % (0.0-2.0); EOSINOPHIL # 0.5 TH/MM3 (0-0.4); EOSINOPHIL % 5.7 % (0.0-4.0); HEMATOCRIT 30.3 % (39.0-51.0); LYMPH % 23.2 % (9.0-44.0); LYMPHOCYTE # 2.2 TH/MM3 (1.0-4.8); MEAN CELL VOLUME 85.5 FL (80.0-100.0); MEAN CORPUSCULAR HEMOGLOBIN 28.7 PG (27.0-34.0); MEAN CORPUSCULAR HGB CONC 33.6 % (32.0-36.0); MONO % 3.6 % (0.0-8.0); NEUT % 66.3 % (16.0-70.0); PLATELET COUNT 465 TH/MM3 (150-450); RED BLOOD COUNT 3.54 MIL/MM3 (4.50-5.90); RED CELL DISTRIBUTION WIDTH 16.2 % (11.6-17.2); WHITE BLOOD COUNT 9.4 TH/MM3 (4.0-11.0)
[2016-09-05 05:50] LABS: HEMO FLAGS AUTO DIFF
[2016-09-05] MEDS: LACTIC ACID (AMMONIUM LACTATE) 12% LOTION 225 GM BTL TOPICAL SCH ×6 (05:50→23:53)
[2016-09-05] MEDS: VANCOMYCIN INJ 1,500 MG in SODIUM CHLORID 0.9% 500 ML INJ 500 ML IV SCH (05:50)
[2016-09-05 06:14] VITALS: BP 101/53; PULSE 76; RESP 18; TEMP 98.1; O2SAT 93
[2016-09-05 06:42] LABS: POTASSIUM 4.1 MEQ/L (3.5-5.1)
[2016-09-05] MEDS: FAMOTIDINE 20 MG TAB PO SCH ×2 (08:57→21:00)
[2016-09-05] MEDS: MICONAZOLE NITRATE 2% CREAM 15 GM TOPICAL SCH ×2 (08:57→22:42)
[2016-09-05 09:09] LABS: BURR CELLS 1+ (NORMAL); PLATELET ESTIMATE SMEAR HIGH (NORMAL); PLATELET MORPHOLOGY NORMAL (NORMAL); SCAN/DIFF AUTO DIFF CONFIRMED
[2016-09-05 10:36] LABS: ANA SCREEN NEG (NEG)
[2016-09-05 11:28] VITALS: BP 126/72; PULSE 87; RESP 19; TEMP 98.1; O2SAT 92
--- NOTE | 2016-09-05 12:33 | HHI.PR ---
Subjective Remarks f/u for possible bacteremia no fever overnight, feels fine,no sob, no urinary symptoms, he says he wants to go home because he needs to work. Objective Vitals Vital Signs Date Time Temp Pulse Resp B/P Pulse Ox O2 Delivery O2 Flow Rate FiO2 09/05/16 11:28 98.1 87 19 126/72 92 09/05/16 06:14 98.1 76 18 101/53 93 09/04/16 20:05 99.2 72 18 111/49 93 09/04/16 13:09 80 20 130/60 95 I/O 09/04/16 09/04/16 09/04/16 09/05/16 09/05/16 09/05/16 07:00 15:00 23:00 07:00 15:00 23:00 Intake Total 842 ml Output Total 300 ml 300 ml Balance 842 ml -300 ml -300 ml Intake IV Total 842 ml Output Urine Total 300 ml 300 ml Result Diagram: 09/05/16 0424 09/05/16419 Objective Remarks GENERAL: Not in acute distress, well-nourished. HEAD: Atraumatic. Normocephalic. EYES: PERRL, full EOMs, no jaundice, nonicteric, pink conjunctivae , right eye prosthesis. CARDIOVASCULAR: Regular rate and rhythm without murmurs, gallops, or rubs. RESPIRATORY: Decreased breath sounds symmetrically. GASTROINTESTINAL: Abdomen soft, normal bowel sounds, non-tender, nondistended. No hepato-splenomegaly or palpable mass. No guarding. VASQUEZ and exam deferred. MUSCULOSKELETAL: Extremities without clubbing, cyanosis, trace edema. INTEGUMENTARY: Bilateral upper extremities with mild swelling, mild erythema, excoriation, skin is almost leathery, peeling, flaky, mild warmth, no discharge , no crepitus. There is also dry flaky skin anterior chest wall with mild erythema. Bilateral lower extremities, also with erythema and mild warmth with flaky skin. - Upper extremities and lower extremities more moist today with Lac- Hydrin. NEUROLOGICAL: Awake, alert, oriented 3. No obvious cranial nerve deficits. Moves all 4 extremities, muscle strength testing 5 over 5. No focal neurologic deficits. PSYCHIATRIC: Normal mood, appropriate affect. A/P Assessment and Plan This is a 56-year-old male presenting with a positive blood culture for MRSA Rule out MRSA bacteremia-patient is asymptomatic. Previously had MRSA from cellulitis in May, had 3 courses of antibiotics. Patient presented about a week ago to the emergency department with upper extremity itching, was started on prednisone and Benadryl, these has improved. Blood culture came back positive for MRSA. Chest x-ray is negative personally reviewed, repeated blood culture negative to date, continue vancomycin for now. Urinalysis pending. Infectious disease following. Follow-up workup including zinc, B-12, DEN, RA, RPR, GC, hepatitis profile. Leukocytosis resolved. Bilateral upper extremity scaling-needs a formal dermatology consult as outpatient, possible fungal infection as well including anterior chest, will give emollients/Lac-Hydrin and miconazole cream, Benadryl for itching. Thrombocytosis-may be a normal variant. Monitor. DVT prophylaxis: Patient is low risk, SCDs. Vladimir Oshea MD Sep 05, 2016 12:33
[2016-09-05 16:41] VITALS: BP 128/77; PULSE 79; RESP 16; TEMP 97.3; O2SAT 95
[2016-09-05 20:00] VITALS: BP 118/75; PULSE 78; RESP 19; TEMP 97.4; O2SAT 96
[2016-09-06] VITALS: BP 140/69; PULSE 74; RESP 17; TEMP 97.2; O2SAT 93
[2016-09-06] MEDS ORDERED: PHARMACY ORDERED LAB XX ONE (00:45)
[2016-09-06] MEDS: VANCOMYCIN INJ 1,500 MG in SODIUM CHLORID 0.9% 500 ML INJ 500 ML IV SCH (03:08)
[2016-09-06 04:00] VITALS: BP 130/79; PULSE 71; RESP 16; TEMP 97.2; O2SAT 93
[2016-09-06] MEDS: LACTIC ACID (AMMONIUM LACTATE) 12% LOTION 225 GM BTL TOPICAL SCH ×2 (06:00→08:20)
[2016-09-06 08:00] VITALS: BP 130/77; PULSE 69; RESP 20; TEMP 97.2; O2SAT 95
[2016-09-06] MEDS: MICONAZOLE NITRATE 2% CREAM 15 GM TOPICAL SCH (08:20)
[2016-09-06] MEDS: FAMOTIDINE 20 MG TAB PO SCH (08:21)
[2016-09-06 12:00] VITALS: BP 129/80; PULSE 76; RESP 20; TEMP 97.3; O2SAT 96
[2016-09-06] MEDS ORDERED: LACT12LO4 TOPICAL (12:51)
[2016-09-06] MEDS ORDERED: BACT800T5 PO (12:51)
[2016-09-06] MEDS ORDERED: SULFAMETHOXAZOLE-TRIMETHOPRIM DS 800-160 MG TAB PO SCH (12:51)
[2016-09-06] MEDS ORDERED: DIPH25CA PO (12:51)
[2016-09-06] MEDS ORDERED: Miconazole 2% Cream TOPICAL (12:51)
--- NOTE | 2016-09-06 12:51 | HHI.IDPN ---
Subjective Subjective Remarks Mr. Barker is a 56-year-old male with past medical history significant for melanoma, chronic skin changes started in April 2016, history of recurrent cellulitis with multiple visits to the emergency department. Off note patient was initially seen in April 2016 and he was found to have cellulitis at that time. Allegedly started with an insect bite. Wound cultures grew MRSA and group A strep. Patient was started on antibiotics at that time which he reportedly finished the course. After that his primary care physician Dr. Casey Mcqueen may have given some antibiotics. In June he went to a hospital unknown for eczema and cellulitis and again treated with Keflex. He reports that in July again he was seen by his PCP and underwent a two-week course of antibiotics. He again presented to the hospital with bilateral upper extremity itching more recently and it was thought that maybe he was having an allergic reaction to the antibiotic prescribed and was given prednisone and Benadryl and discharged. Blood culture was done at that time and the culture is now positive for MRSA. He was called back to the hospital due to the positive blood cultures. He denies any symptoms other than itching of bilateral upper extremities which has since improved. He also thinks that his upper extremity cellulitis is improved. He denies any fever or chills shortness of breath or urinary symptoms. He denies any abdominal pain and diarrhea. On further questioning he reports to me that his blood cultures are drawn off another sites on his upper extremities where he has skin lesions. He reports his of dry cough from smoking. He does not know if any vitamin deficiencies. He does not think he has been worked up for a skin diagnosis. Overnight events reviewed. No fevers No diarrhea Bilateral UE and LE scaling noted. erythema but no warmth. Antibiotics Vanco IV Lines Line sites with no e/o infection Past Medical History reviewed Allergies: Coded Allergies: Cortisone (Verified Allergy, Severe, "Blows me up", 09/03/16) Hydrocortisone (Verified Allergy, Severe, EDEMA, 09/03/16) *MDRO Multi-Drug Resistant Organism (Verified Adverse Reaction, Unknown, ) MRSA:arm-05/09/16, blood-08/28/16 Objective . Vital Signs Date Time Temp Pulse Resp B/P Pulse Ox O2 Delivery O2 Flow Rate FiO2 09/06/16 08:00 97.2 69 20 130/77 95 09/06/16 04:00 97.2 71 16 130/79 93 09/06/16 00:00 97.2 74 17 140/69 93 09/05/16 20:00 97.4 78 19 118/75 96 09/05/16 16:41 97.3 79 16 128/77 95 09/05/16 09/05/16 09/06/16 15:00 23:00 07:00 Intake Total 240 ml Balance 240 ml Intake Oral 240 ml # Voids 1 . Laboratory Tests Test 09/05/16 04:24 White Blood Count 9.4 TH/MM3 Red Blood Count 3.54 MIL/MM3 Hemoglobin 10.2 GM/DL Hematocrit 30.3 % Mean Corpuscular Volume 85.5 FL Mean Corpuscular Hemoglobin 28.7 PG Mean Corpuscular Hemoglobin 33.6 % Concent Red Cell Distribution Width 16.2 % Platelet Count 465 TH/MM3 Mean Platelet Volume 6.8 FL Neutrophils (%) (Auto) 66.3 % Lymphocytes (%) (Auto) 23.2 % Monocytes (%) (Auto) 3.6 % Eosinophils (%) (Auto) 5.7 % Basophils (%) (Auto) 1.2 % Neutrophils # (Auto) 6.2 TH/MM3 Lymphocytes # (Auto) 2.2 TH/MM3 Monocytes # (Auto) 0.3 TH/MM3 Eosinophils # (Auto) 0.5 TH/MM3 Basophils # (Auto) 0.1 TH/MM3 CBC Comment AUTO DIFF Differential Comment AUTO DIFF CONFIRMED Platelet Estimate HIGH Platelet Morphology Comment NORMAL [place] Cells 1+ Laboratory Tests Test 09/05/16 04:20 Sodium Level 139 MEQ/L Potassium Level 4.1 MEQ/L Chloride Level 104 MEQ/L Carbon Dioxide Level 22.0 MEQ/L Anion Gap 13 MEQ/L Blood Urea Nitrogen 12 MG/DL Creatinine 1.07 MG/DL Estimat Glomerular Filtration 71 ML/MIN Rate Random Glucose 87 MG/DL Calcium Level 7.8 MG/DL Microbiology Date/Time Procedure Status Source Growth 09/03/16 20:20 Aerobic Blood Culture - Preliminary Resulted Blood Peripheral NO GROWTH IN 3 DAYS 09/03/16 20:20 Anaerobic Blood Culture - Preliminary Resulted Blood Peripheral NO GROWTH IN 3 DAYS 09/03/16 20:30 Aerobic Blood Culture - Preliminary Resulted Blood Peripheral NO GROWTH IN 3 DAYS 09/03/16 20:30 Anaerobic Blood Culture - Preliminary Resulted Blood Peripheral NO GROWTH IN 3 DAYS Imaging Last Impressions Chest X-Ray 09/04/16 0000 Signed Impressions: Service Date/Time: Sunday, September 04, 2016 11:16 - CONCLUSION: No acute cardiopulmonary disease identified. Alberto Rosales MD Physical Exam GENERAL: Poorly nourished, well-developed patient, in no apparent distress. SKIN: Chronic dry skin changes. Laying of skin in some places noted. Cracking of skin noted in. Is also perioral dryness. Cracking of the angles of the mouth noted. Patient was picking on his skin during my visit with him. HEAD: Atraumatic. Normocephalic. No temporal or scalp tenderness. EYES: Pupils equal round and reactive. Extraocular motions intact. No scleral icterus. No injection or drainage. ENT: Nose without bleeding, purulent drainage or septal hematoma. Throat without erythema, tonsillar hypertrophy or exudate. Uvula midline. Airway patent. NECK: Trachea midline. Supple, nontender, no meningeal signs. CARDIOVASCULAR: Heart sounds audible. No murmur appreciated. RESPIRATORY: Clear to auscultation. Breath sounds equal bilaterally. GASTROINTESTINAL: Abdomen soft, non-tender, nondistended. MUSCULOSKELETAL: Bilateral lower extremities with significant erythema, but no warmth to suggest cellulitis. Bilateral upper extremity with chronic skin changes. His lower extremities appeared to be the source of infection likely had cellulitis upper extremity with mild cellulitis. NEUROLOGICAL: Awake and alert. Grossly nonfocal. Psych not cooperative at times. IV line sites with no evidence of infection. Assessment & Plan Remarks MRSA bacteremia likely source cellulitis. Bilateral lower extremity cellulitis. Bilateral upper extremity cellulitis. MRSA and strep and upper extremity cultures. Likely infection. Eosinophilia: likely secondary to skin issues. Recs: Continue vancomycin IV target trough 15-20 It is extremely difficult to obtain blood cultures in this patient without having penetrated his already compromised skin. He likely has colonization of MRSA on the skin. MRSA in the blood likely contamination while collecting blood culture given his chronic skin condition. Follow zinc level, B12 level, DEN and RA level. Patient needs a referral to dermatology as outpatient to prevent these recurrent admissions. Lac-Hydrin for local application after the patient has a shower. Discussed with patient as well as RN. Examined pt with Dr. Oshea. DC home on Bactrim DS 1 po bid for 10 days (not on CASI-I or K supplements) Will sign off please call back if any change in clinical condition or questions. Cindy Lord MD Sep 06, 2016 12:51
--- NOTE | 2016-09-06 13:49 | HHI.DS ---
Discharge Summary Admission Date Sep 03, 2016 at 22:46 Discharge Date: Sep 06, 2016 Admitting Diagnosis positive blood culture, skin infection (1) Cellulitis ICD Code: L03.90 Diagnosis: Secondary (2) MRSA bacteremia ICD Code: R78.81 Diagnosis: Principal Procedures None Brief History - From Admission This is a 56-year-old male who presented to the emergency department after patient was informed that he has positive blood cultures. Of note, patient was initially seen here in April 2016, patient was found to have cellulitis at that time which allegedly started with an insect bite. Wound culture grew MRSA and group A streptococcus. He was started on antibiotics at that time which he finished. After that, he was placed on a second course of antibiotics by Dr. Mcqueen, his primary care physician. In June, he went to the hospital for upper extremity swelling, was found to have another episode of cellulitis, he was discharged from the emergency department with Keflex. He finished his course of Keflex. He was allegedly restarted on antibiotics by his primary care doctor again in July which he finished 2 weeks ago. Subsequently, he presented to the hospital with bilateral upper extremity itching, was thought that he might be having an allergic reaction, discharged from the emergency department on prednisone and Benadryl. Blood culture was done at that time, but culture came back positive for MRSA 1 out of 4 bottles. She was then called to come back to the hospital hence his presentation. He however denies any symptoms other than itching of bilateral upper extremities which has since improved. Patient denies any fever, chills, shortness of breath, urinary symptoms, abdominal pain, diarrhea, skin abscess, or anyone. He has chronic dry cough from smoking. CBC/BMP: 09/05/16 0424 09/05/16 0420 Significant Findings Laboratory Tests Test 09/03/16 09/04/16 09/05/16 09/05/16 20:30 03:44 04:20 04:24 White Blood Count 11.6 TH/MM3 (4.0-11.0) Red Blood Count 4.16 MIL/MM3 4.14 MIL/MM3 3.54 MIL/MM3 (4.50-5.90) (4.50-5.90) (4.50-5.90) Hemoglobin 12.0 GM/DL 11.8 GM/DL 10.2 GM/DL (13.0-17.0) (13.0-17.0) (13.0-17.0) Hematocrit 35.6 % 35.6 % 30.3 % (39.0-51.0) (39.0-51.0) (39.0-51.0) Platelet Count 516 TH/MM3 476 TH/MM3 465 TH/MM3 (150-450) (150-450) (150-450) Mean Platelet Volume 6.6 FL 6.6 FL 6.8 FL (7.0-11.0) (7.0-11.0) (7.0-11.0) Eosinophils (%) (Auto) 16.2 % 5.7 % (0.0-4.0) (0.0-4.0) Eosinophils # (Auto) 1.9 TH/MM3 0.5 TH/MM3 (0-0.4) (0-0.4) Estimat Glomerular Filtration 64 ML/MIN (>89) 66 ML/MIN (>89) 71 ML/MIN (>89) Rate Calcium Level 8.3 MG/DL 8.0 MG/DL 7.8 MG/DL (8.5-10.1) (8.5-10.1) (8.5-10.1) Random Glucose 160 MG/DL (74-106) Alkaline Phosphatase 123 U/L (45-117) Total Protein 6.0 GM/DL (6.4-8.2) Albumin 2.2 GM/DL (3.4-5.0) Vitamin B12 Level 1206 PG/ML (193-986) Platelet Estimate HIGH (NORMAL) Jed Cells 1+ (NORMAL) Test 09/06/16 02:25 Vancomycin Level Trough 13.7 MCG/ML (5.0-10.0) PE at Discharge GENERAL: Not in acute distress, well-nourished. HEAD: Atraumatic. Normocephalic. EYES: PERRL, full EOMs, no jaundice, nonicteric, pink conjunctivae , right eye prosthesis. CARDIOVASCULAR: Regular rate and rhythm without murmurs, gallops, or rubs. RESPIRATORY: Decreased breath sounds symmetrically. GASTROINTESTINAL: Abdomen soft, normal bowel sounds, non-tender, nondistended. No hepato-splenomegaly or palpable mass. No guarding. VASQUEZ and exam deferred. MUSCULOSKELETAL: Extremities without clubbing, cyanosis, trace edema. INTEGUMENTARY: Bilateral upper extremities with mild swelling, mild erythema, excoriation, skin is almost leathery, peeling, flaky, mild warmth, no discharge , no crepitus. There is also dry flaky skin anterior chest wall with mild erythema. Bilateral lower extremities, also with erythema and mild warmth with flaky skin. - Upper extremities and lower extremities more moist today with Lac- Hydrin. NEUROLOGICAL: Awake, alert, oriented 3. No obvious cranial nerve deficits. Moves all 4 extremities, muscle strength testing 5 over 5. No focal neurologic deficits. PSYCHIATRIC: Normal mood, appropriate affect. Pt update on day of discharge No overnight events, no fever. No diarrhea, chest pain or shortness of breath. Lower extremity pain minimal, stable. Discussed extensively with Hospital Course This is a 56-year-old male presenting with a positive blood culture for MRSA. Previously had MRSA from cellulitis in May, had 3 courses of antibiotics. Patient presented about a week ago to the emergency department with upper extremity itching, was started on prednisone and Benadryl, these has improved. Blood culture came back positive for MRSA. Chest x-ray is negative personally reviewed, repeated blood culture negative to date, patient was empirically started on vancomycin. Workup was negative. Leukocytosis resolved after 1 day. Patient might have mild lower extremity cellulitis, after several days on vancomycin, and discussion with infectious disease, patient will be discharged on Bactrim to finish 10 more days of treatment. He would need a formal dermatology consult as outpatient. He will be discharged on Lac-Hydrin and miconazole cream with Benadryl for itching. Pt Condition on Discharge: Good Discharge Disposition: Discharge Home Discharge Time: > 30 minutes Discharge Instructions DIET: Follow Instructions for: Heart Healthy Diet Activities you can perform: Regular-No Restrictions Follow up Referrals: PCP Follow-up - 1 Week New Medications: Sulfamethoxazole-Trimethoprim (Bactrim DS) 800-160 Mg Tab 1 TAB PO BID Infection #20 Ref 0 TAB Diphenhydramine (Diphenhydramine) 25 Mg Cap 25 MG PO Q6HR PRN itching #30 CAP Lactic Acid (Ammonium Lactate) (Amlactin) 12 % Lot 1 APPLIC TOPICAL BID emolient #1 BOTTLE ([Miconazole 2% Cream]) 15 APPLIC/15 GM CR 1 APPLIC TOPICAL Q12HR #1 TUBE Vladimir Oshea MD Sep 06, 2016 13:49
== END 2016-09-06 15:35 | disposition home or self-care (01) | DRG 603 ==
LOC: NEPA 19:21 → NEDA 21:54 → OBSVTOIN 22:46 → NEPFCDU 23:57 → N04A 09-05 18:58
PROVIDERS: ADMIT Hospitalist; ATTEND Hospitalist
DX: L03.115 Cellulitis of right lower limb (principal); D72.1 Eosinophilia; L03.113 Cellulitis of right upper limb; L03.114 Cellulitis of left upper limb; L03.116 Cellulitis of left lower limb; F17.210 Nicotine dependence, cigarettes, uncomplicated; D75.89 Other specified diseases of blood and blood-forming organs; B95.62 Methicillin resistant Staphylococcus aureus infection as the cause of diseases classified elsewhere; Z22.322 Carrier or suspected carrier of Methicillin resistant Staphylococcus aureus; Z86.14 Personal history of Methicillin resistant Staphylococcus aureus infection; Z85.820 Personal history of malignant melanoma of skin; Z90.01 Acquired absence of eye; Z88.8 Allergy status to other drugs, medicaments and biological substances
CPT/HCPCS: 71020; 80048; 80074; 80076; 80202; 82607; 84630; 85025; 85027; 86038; 86592; 87040; 96365; 96375; J2930; J3370; J7040; J7050

== ENCOUNTER 2016-11-25 13:44 | Emergency (ER) | payer OTHER ==
[~2016-11-25] VITALS: Ht 180.3 cm; Wt 75.0 kg
[~2016-11-25 13:44] MED LIST changes: +BACT800T5 PO; -BENA25TA3 PO; +DIPH25CA PO; +LACT12LO4 TOPICAL; +Miconazole 2% Cream TOPICAL; -PRED10PA PO
[2016-11-25 13:46] VITALS: BP 149/79; PULSE 86; RESP 20; TEMP 98.4; O2SAT 98
--- NOTE | 2016-11-25 14:00 | PD ---
Physical Exam Date Seen by Provider: November 25, 2016 Time Seen by Provider: 13:58 Narrative 56 YOWM L GROIN SWELLING TENDER TO THE TOUCH FOR 2 WEEKS. NO F/C/N/V. PAIN 09/23. VSS wating for bed asignment Data Data Last Documented VS Vital Signs Date Time Temp Pulse Resp B/P Pulse Ox O2 Delivery O2 Flow Rate FiO2 11/25/16 13:46 98.4 86 20 149/79 98 Room Air [facility] Medical Record Reviewed: No Supervised Visit with ARTHUR: Charlie Sutherland November 25, 2016 14:00
--- NOTE | 2016-11-25 14:46 | PD ---
HPI Chief Complaint: Lump, Cyst, Hernia Time Seen by Provider: 14:45 Travel History International Travel<30 days: No Contact w/Intl Traveler<30days: No Traveled to known affect area: No History of Present Illness HPI 56-year-old male came to the emergency room with history of a lump on his left groin that apparently has been there for 2 weeks. Denies any pain, fever or chills. Patient says this has been there and has been growing in size. Today decided to come to the emergency room and get it checked. No history of weight loss. No history of vomiting or diarrhea. Vital signs are relatively stable. AST of any corresponding leg infection or a bite or scratch wound from an animal. PFSH Past Medical History Narrative Medical List of his past medical, surgical, social and family history was reviewed from the nursing note. Blood Disorders: No Cancer: Yes (Right eye) Cardiovascular Problems: No Endocrine: No Genitourinary: No Immune Disorder: No Musculoskeletal: No Neurologic: No Psychiatric: No Reproductive: No Respiratory: No Immunizations Current: Yes Past Surgical History Abdominal Surgery: No Cardiac Surgery: No Ear Surgery: No Endocrine Surgery: No Eye Surgery: No Genitourinary Surgery: No Gynecologic Surgery: No Oral Surgery: No Thoracic Surgery: No Social History Alcohol Use: Yes (8 beers per week) Tobacco Use: Yes (4 per day) Substance Use: No Allergies-Medications (Allergen,Severity, Reaction): Coded Allergies: Cortisone (Verified Allergy, Severe, "Blows me up", 11/27/16) Hydrocortisone (Verified Allergy, Severe, EDEMA, 11/27/16) *MDRO Multi-Drug Resistant Organism (Verified Adverse Reaction, Unknown, ) MRSA:arm-05/09/16, blood-08/28/16, groin-11/25/16 Comments List of his allergies reviewed from the nursing note. Reported Meds & Prescriptions Reported Meds & Active Scripts Active Bactrim DS (Sulfamethoxazole-Trimethoprim) 800-160 Mg Tab 1 Tab PO BID Clindamycin (Clindamycin HCl) 300 Mg Cap 300 Mg PO TID Narrative Medication List of his home medications reviewed from the nursing note. Review of Systems Except as stated in HPI: all other systems reviewed are Neg Physical Exam Narrative GENERAL: Awake, alert, no obvious distress SKIN: Focused skin assessment warm/dry. Vitiligo. Left groin area has a 7 cm x 4 cm firm, immobile mass that has slight fluctuance he and slight erythema of the skin anteriorly. HEAD: Atraumatic. Normocephalic. EYES: Pupils equal and round. No scleral icterus. No injection or drainage. ENT: No nasal bleeding or discharge. Mucous membranes pink and moist. NECK: Trachea midline. No JVD. CARDIOVASCULAR: Regular rate and rhythm. No murmur appreciated. RESPIRATORY: No accessory muscle use. Clear to auscultation. Breath sounds equal bilaterally. GASTROINTESTINAL: Abdomen soft, non-tender, nondistended. Hepatic and splenic margins not palpable. MUSCULOSKELETAL: No obvious deformities. No clubbing. No cyanosis. No edema. NEUROLOGICAL: Awake and alert. No obvious cranial nerve deficits. Motor grossly within normal limits. Normal speech. PSYCHIATRIC: Appropriate mood and affect; insight and judgment normal. Data Data Last Documented VS Vital Signs Date Time Temp Pulse Resp B/P Pulse Ox O2 Delivery O2 Flow Rate FiO2 11/25/16 17:12 75 18 134/88 95 11/25/16 13:46 98.4 Room Air Orders Basic Metabolic Panel (Bmp) (11/25/16 14:57) Complete Blood Count With Diff (11/25/16 14:57) Prothrombin Time / Inr (Pt) (11/25/16 14:57) Ct Abd/Pel W Iv Contrast(Rout) (11/25/16 14:57) Iv Access Insert/Monitor (11/25/16 14:57) Ecg Monitoring (11/25/16 14:57) Oximetry (11/25/16 14:57) Sodium Chloride 0.9% Flush (Ns Flush) (11/25/16 15:00) Us Testicles W Doppler (11/25/16 ) Ct Femur W Iv Contrast (11/25/16 ) Sodium Chlorid 0.9% 500 Ml Inj (Ns 500 M (11/25/16 16:15) Iohexol 350 Inj (Omnipaque 350 Inj) (11/25/16 18:44) Lidocai-Epi 1%-1:100,000 Inj (Xylocaine- (11/25/16 19:15) Wound Culture And Gram Stain (11/25/16 19:11) Labs Laboratory Tests Test 11/25/16 15:25 White Blood Count 14.7 TH/MM3 Red Blood Count 4.07 MIL/MM3 Hemoglobin 11.4 GM/DL Hematocrit 33.8 % Mean Corpuscular Volume 82.9 FL Mean Corpuscular Hemoglobin 27.9 PG Mean Corpuscular Hemoglobin 33.7 % Concent Red Cell Distribution Width 16.2 % Platelet Count 472 TH/MM3 Mean Platelet Volume 6.4 FL Neutrophils (%) (Auto) 74.6 % Lymphocytes (%) (Auto) 13.5 % Monocytes (%) (Auto) 4.8 % Eosinophils (%) (Auto) 5.9 % Basophils (%) (Auto) 1.2 % Neutrophils # (Auto) 11.0 TH/MM3 Lymphocytes # (Auto) 2.0 TH/MM3 Monocytes # (Auto) 0.7 TH/MM3 Eosinophils # (Auto) 0.9 TH/MM3 Basophils # (Auto) 0.2 TH/MM3 CBC Comment DIFF FINAL Differential Comment Prothrombin Time 10.9 SEC Prothromb Time International 1.0 RATIO Ratio Sodium Level 130 MEQ/L Potassium Level 4.6 MEQ/L Chloride Level 94 MEQ/L Carbon Dioxide Level 28.3 MEQ/L Anion Gap 8 MEQ/L Blood Urea Nitrogen 15 MG/DL Creatinine 0.76 MG/DL Estimat Glomerular Filtration 106 ML/MIN Rate Random Glucose 84 MG/DL Calcium Level 9.3 MG/DL [facility] Medical Decision Making Medical Screen Exam Complete: Yes Emergency Medical Condition: Yes Differential Diagnosis Malignancy, abscess, lymphadenopathy Narrative Course 4:40 PM awaiting for the CAT scan and ultrasound to be done and resulted. Blood test shows elevated white blood cell count. I will add a CRP. Patient is getting a testicular ultrasound as well. 5:06 PM ultrasound report is back which shows bilateral hydroceles. Awaiting for the CAT scan to be done and resulted. Case has been signed over to the oncoming ER physician. Procedures EKG Prior to Arrival: No Scripts Clindamycin 300 Mg [id number] Mg PO TID #21 CAP Ref 0 Prov:Sangita Cavazos MD 11/25/16 Kim Espinosa MD November 25, 2016 14:46
[2016-11-25] MEDS ORDERED: SODIUM CHLORIDE 0.9% FLUSH 10 ML FLUSH IV FLUSH PRN (15:00)
[2016-11-25 15:45] LABS: BASOPHIL # 0.2 TH/MM3 (0-0.2); BASOPHIL % 1.2 % (0.0-2.0); EOSINOPHIL # 0.9 TH/MM3 (0-0.4); EOSINOPHIL % 5.9 % (0.0-4.0); HEMATOCRIT 33.8 % (39.0-51.0); HEMO FLAGS DIFF FINAL; LYMPH % 13.5 % (9.0-44.0); MEAN CELL VOLUME 82.9 FL (80.0-100.0); MEAN CORPUSCULAR HEMOGLOBIN 27.9 PG (27.0-34.0); MEAN CORPUSCULAR HGB CONC 33.7 % (32.0-36.0); MONO % 4.8 % (0.0-8.0); NEUT % 74.6 % (16.0-70.0); PLATELET COUNT 472 TH/MM3 (150-450); RED BLOOD COUNT 4.07 MIL/MM3 (4.50-5.90); RED CELL DISTRIBUTION WIDTH 16.2 % (11.6-17.2); WHITE BLOOD COUNT 14.7 TH/MM3 (4.0-11.0)
[2016-11-25 15:47] LABS: PROTHROMBIN TIME - PATIENT 10.9 SEC (9.8-11.6)
[2016-11-25 16:09] LABS: BICARBONATE 28.3 MEQ/L (21.0-32.0); POTASSIUM 4.6 MEQ/L (3.5-5.1)
[2016-11-25] MEDS ORDERED: SODIUM CHLORID 0.9% 500 ML INJ 500 ML IV ONE (16:15)
--- NOTE | 2016-11-25 16:51 | RADRPT ---
EXAM DATE/TIME: 11/25/2016 15:51 [facility] COMPARISON: No previous studies available for comparison. INDICATIONS : Scrotal swelling. MEDICAL HISTORY : Right eye cancer. MRSA. Testicle pain. SURGICAL HISTORY : Right eye surgery. ENCOUNTER: Initial ACUITY: 1 day PAIN SCORE: 0/10 LOCATION: Bilateral Scrotum. MEASUREMENTS: RIGHT TESTICLE: 3.9 x 3.2 x 2.8cm LEFT TESTICLE: 3.7 x 2.6 x 2.8cm FINDINGS: RIGHT TESTICLE: Large hydrocele is noted. Good flow is evident. LEFT TESTICLE: Large hydrocele is noted. Testicle is minimally inhomogeneous. Flow is evident. This is nonspecifi c. SCROTUM: Within normal limits. CONCLUSION: Large bilateral hydroceles. There is no evidence for torsion. Angelo Clements MD FACR on November 25, 2016 at 16:47 Board Certified Radiologist. This report was verified electronically.
[2016-11-25 17:12] VITALS: BP 134/88; PULSE 75; RESP 18; O2SAT 95
--- NOTE | 2016-11-25 17:48 | PD ---
Data Data Last Documented VS Vital Signs Date Time Temp Pulse Resp B/P Pulse Ox O2 Delivery O2 Flow Rate FiO2 11/25/16 17:12 75 18 134/88 95 11/25/16 13:46 98.4 Room Air Orders Basic Metabolic Panel (Bmp) (11/25/16 14:57) Complete Blood Count With Diff (11/25/16 14:57) Prothrombin Time / Inr (Pt) (11/25/16 14:57) Ct Abd/Pel W Iv Contrast(Rout) (11/25/16 14:57) Iv Access Insert/Monitor (11/25/16 14:57) Ecg Monitoring (11/25/16 14:57) Oximetry (11/25/16 14:57) Sodium Chloride 0.9% Flush (Ns Flush) (11/25/16 15:00) Us Testicles W Doppler (11/25/16 ) Ct Femur W Iv Contrast (11/25/16 ) Sodium Chlorid 0.9% 500 Ml Inj (Ns 500 M (11/25/16 16:15) Iohexol 350 Inj (Omnipaque 350 Inj) (11/25/16 18:44) Lidocai-Epi 1%-1:100,000 Inj (Xylocaine- (11/25/16 19:15) Wound Culture And Gram Stain (11/25/16 19:11) Labs Laboratory Tests Test 11/25/16 15:25 White Blood Count 14.7 TH/MM3 Red Blood Count 4.07 MIL/MM3 Hemoglobin 11.4 GM/DL Hematocrit 33.8 % Mean Corpuscular Volume 82.9 FL Mean Corpuscular Hemoglobin 27.9 PG Mean Corpuscular Hemoglobin 33.7 % Concent Red Cell Distribution Width 16.2 % Platelet Count 472 TH/MM3 Mean Platelet Volume 6.4 FL Neutrophils (%) (Auto) 74.6 % Lymphocytes (%) (Auto) 13.5 % Monocytes (%) (Auto) 4.8 % Eosinophils (%) (Auto) 5.9 % Basophils (%) (Auto) 1.2 % Neutrophils # (Auto) 11.0 TH/MM3 Lymphocytes # (Auto) 2.0 TH/MM3 Monocytes # (Auto) 0.7 TH/MM3 Eosinophils # (Auto) 0.9 TH/MM3 Basophils # (Auto) 0.2 TH/MM3 CBC Comment DIFF FINAL Differential Comment Prothrombin Time 10.9 SEC Prothromb Time International 1.0 RATIO Ratio Sodium Level 130 MEQ/L Potassium Level 4.6 MEQ/L Chloride Level 94 MEQ/L Carbon Dioxide Level 28.3 MEQ/L Anion Gap 8 MEQ/L Blood Urea Nitrogen 15 MG/DL Creatinine 0.76 MG/DL Estimat Glomerular Filtration 106 ML/MIN Rate Random Glucose 84 MG/DL Calcium Level 9.3 MG/DL MDM Supervised Visit with ARTHUR: No Narrative Course Patient sinus to me by previous provider. Please see associated no for further details. In short patient is a 56-year-old male with 2 weeks of a lump to the left groin region. This is nontender but is slightly fluctuant on exam. Fairly fixed. No testicular pain. No fevers or chills. Previous provider had concerns that this is potentially malignant given the fixed, adherent portion versus abscess given fluctuance on exam. Laboratory workup notable for slightly elevated WBC, platelets. Testicular ultrasound with bilateral hydrocele, large but no evidence of torsion or mass. Patient signed out to me pending CT abdomen, pelvis, femur. CT results showed a 6 cm abscess versus liquefied hematoma in the left groin. Otherwise unremarkable. I&D performed, please see procedure note. Patient started on antibiotics and discharged home. Diagnosis Primary Impression: Abscess of left groin Additional Instruction: Antibiotics as prescribed. Return to the emergency department on Monday evening for packing removal and wound recheck. Med/Other Pt SpecificInfo: Prescription(s) given Scripts Clindamycin 300 Mg [id number] Mg PO TID #21 CAP Ref 0 Prov:Sangita Cavazos MD 11/25/16 Disposition: 01 DISCHARGE HOME Condition: Stable Sangita Cavazos MD November 25, 2016 17:48
[2016-11-25] MEDS ORDERED: IOHEXOL 350 MG/ML 10 ML VIAL (for RAD DIAG) IV ONE (18:44)
--- NOTE | 2016-11-25 19:05 | RADRPT ---
EXAM DATE/TIME: 11/25/2016 18:24 [facility] COMPARISON: No previous studies available for comparison. INDICATIONS : Left groin swelling. IV CONTRAST: 98 cc Omnipaque 350 (iohexol) IV ; Cumulative dose for multiple exams. ORAL CONTRAST: No oral contrast ingested. RADIATION DOSE: 8.21 CTDIvol (mGy) MEDICAL HISTORY : Methicillin-resistant Staphylococcus aureus. SURGICAL HISTORY : None. ENCOUNTER: Initial ACUITY: 2 weeks PAIN SCALE: 0/10 LOCATION: lower quadrant TECHNIQUE: Volumetric scanning of the abdomen and pelvis was performed. Using automated exposure control and ad justment of the mA and/or kV according to patient size, radiation dose was kept as low as reasonably achievable to obtain optimal diagnostic quality images. FINDINGS: LOWER LUNGS: Mild atelectasis in the lung bases. LIVER: Homogeneous density without lesion. There is no dilation of the biliary tree. No calcified gallston es. SPLEEN: Normal size without lesion. PANCREAS: Within normal limits. KIDNEYS: Bilateral renal cysts. No evidence of kidney stone or hydronephrosis. ADRENAL GLANDS: Within normal limits. VASCULAR: There is no aortic aneurysm. BOWEL/MESENTERY: Colonic diverticula. No abnormal dilatation, wall thickening or focal inflammatory change. ABDOMINAL WALL: Within normal limits. RETROPERITONEUM: There is no lymphadenopathy. BLADDER: No wall thickening or mass. REPRODUCTIVE: Within normal limits. INGUINAL: There is a 6 cm mass/collection in the right inguinal region. Surrounding fatty tissue edema. Central low density suggests this may be an abscess versus liquefying hematoma. There are mildly enlarged pr esumed reactive lymph nodes in the adjacent inguinal tissues. MUSCULOSKELETAL: Within normal limits for patient age. CONCLUSION: 6 cm mass/collection in the left inguinal region is likely abscess or a liquefied hematoma. Fernie Nevarez MD on November 25, 2016 at 18:59 Board Certified Radiologist. This report was verified electronically.
--- NOTE | 2016-11-25 19:09 | RADRPT ---
EXAM DATE/TIME: 11/25/2016 18:24 [facility] COMPARISON: No previous studies available for comparison. INDICATIONS : Left groin swelling. IV CONTRAST: 98 cc Omnipaque 350 (iohexol) IV ; Cumulative dose for multiple exams. RADIATION DOSE: 10.62 CTDIvol (mGy) MEDICAL HISTORY : Methicillin-resistant Staphylococcus aureus. SURGICAL HISTORY : None. ENCOUNTER: Initial ACUITY: 2 weeks PAIN SCALE: 0/10 LOCATION: Left inguinal TECHNIQUE: Volumetric scanning of the femur was performed. Using automated exposure control and adjustment of t he mA and/or kV according to patient size, radiation dose was kept as low as reasonably achievable to obtain optimal diagnostic quality images. FINDINGS: BONES: No evidence of fracture. Alignment is within normal limits. JOINTS: No evidence of joint narrowing or effusion. SOFT TISSUES: There is a mass/collection in the left inguinal region. See report of CT abdomen pelvis for further d etails. CONCLUSION: Left inguinal mass/collection. Femur and thigh are unremarkable Fernie Nevarez MD on November 25, 2016 at 19:06 Board Certified Radiologist. This report was verified electronically.
[2016-11-25] MEDS ORDERED: CLIN1CAP6 PO (19:12)
[2016-11-25] MEDS ORDERED: LIDOCAINE 1%/EPINEPHrine 1:100,000 SOLN 20 ML VIAL INFIL ONE (19:15)
--- NOTE | 2016-11-25 19:33 | PD ---
Physical Exam Date Seen by Provider: November 25, 2016 Time Seen by Provider: 19:32 Narrative I was asked by Dr. Cavazos to incise and drain abscess to the patient's left groin. Please see her documentation for full history and physical. Data Data Last Documented VS Vital Signs Date Time Temp Pulse Resp B/P Pulse Ox O2 Delivery O2 Flow Rate FiO2 11/25/16 17:12 75 18 134/88 95 11/25/16 13:46 98.4 Room Air Orders Basic Metabolic Panel (Bmp) (11/25/16 14:57) Complete Blood Count With Diff (11/25/16 14:57) Prothrombin Time / Inr (Pt) (11/25/16 14:57) Ct Abd/Pel W Iv Contrast(Rout) (11/25/16 14:57) Iv Access Insert/Monitor (11/25/16 14:57) Ecg Monitoring (11/25/16 14:57) Oximetry (11/25/16 14:57) Sodium Chloride 0.9% Flush (Ns Flush) (11/25/16 15:00) Us Testicles W Doppler (11/25/16 ) Ct Femur W Iv Contrast (11/25/16 ) Sodium Chlorid 0.9% 500 Ml Inj (Ns 500 M (11/25/16 16:15) Iohexol 350 Inj (Omnipaque 350 Inj) (11/25/16 18:44) Lidocai-Epi 1%-1:100,000 Inj (Xylocaine- (11/25/16 19:15) Wound Culture And Gram Stain (11/25/16 19:11) Labs Laboratory Tests Test 11/25/16 15:25 White Blood Count 14.7 TH/MM3 Red Blood Count 4.07 MIL/MM3 Hemoglobin 11.4 GM/DL Hematocrit 33.8 % Mean Corpuscular Volume 82.9 FL Mean Corpuscular Hemoglobin 27.9 PG Mean Corpuscular Hemoglobin 33.7 % Concent Red Cell Distribution Width 16.2 % Platelet Count 472 TH/MM3 Mean Platelet Volume 6.4 FL Neutrophils (%) (Auto) 74.6 % Lymphocytes (%) (Auto) 13.5 % Monocytes (%) (Auto) 4.8 % Eosinophils (%) (Auto) 5.9 % Basophils (%) (Auto) 1.2 % Neutrophils # (Auto) 11.0 TH/MM3 Lymphocytes # (Auto) 2.0 TH/MM3 Monocytes # (Auto) 0.7 TH/MM3 Eosinophils # (Auto) 0.9 TH/MM3 Basophils # (Auto) 0.2 TH/MM3 CBC Comment DIFF FINAL Differential Comment Prothrombin Time 10.9 SEC Prothromb Time International 1.0 RATIO Ratio Sodium Level 130 MEQ/L Potassium Level 4.6 MEQ/L Chloride Level 94 MEQ/L Carbon Dioxide Level 28.3 MEQ/L Anion Gap 8 MEQ/L Blood Urea Nitrogen 15 MG/DL Creatinine 0.76 MG/DL Estimat Glomerular Filtration 106 ML/MIN Rate Random Glucose 84 MG/DL Calcium Level 9.3 MG/DL MDM Supervised Visit with ARTHUR: No Procedures Procedure Narrative INCISION AND DRAINAGE OF ABSCESS: The area was prepped and was sterilely draped. A subcutaneous wheal of 1% Xylocaine with epinephrine with a total number 6 mL was used to anesthetize the area. The area was properly anesthetized. A number 11 scalpel was used to make a 1 -cm incision across the area of the abscess. Cultures were obtained. The abscess was drained an irrigated with normal saline. Quarter inch iodoform packing was placed in the wound. Sterile dressing applied. Patient advised to have packing removed in two days. Diagnosis Primary Impression: Abscess of left groin Additional Instruction: Antibiotics as prescribed. Return to the emergency department on Monday evening for packing removal and wound recheck. Scripts Clindamycin 300 Mg [id number] Mg PO TID #21 CAP Ref 0 Prov:Sangita Cavazos MD 11/25/16 Disposition: 01 DISCHARGE HOME Condition: Stable IndraMalgorzata November 25, 2016 19:33
== END 2016-11-25 20:12 | disposition home or self-care (01) ==
LOC: NEPD 13:44
DX: L02.214 Cutaneous abscess of groin (principal); F17.210 Nicotine dependence, cigarettes, uncomplicated; N43.3 Hydrocele, unspecified; B95.62 Methicillin resistant Staphylococcus aureus infection as the cause of diseases classified elsewhere
CPT/HCPCS: 10061; 73701; 74177; 76870; 80048; 85025; 85610; 86403; 87070; 87186; 93975; 96360; 99283; J7040; Q9967; 87205

== ENCOUNTER 2016-11-27 20:26 | Emergency (ER) | payer OTHER ==
[~2016-11-27] VITALS: Ht 180.3 cm; Wt 85.0 kg
[~2016-11-27 20:26] MED LIST changes: -BACT800T5 PO; +CLIN1CAP6 PO; -DIPH25CA PO; -LACT12LO4 TOPICAL; -Miconazole 2% Cream TOPICAL
[2016-11-27 20:28] VITALS: BP 130/73; PULSE 16; PULSE 96; RESP 16; TEMP 98.1; O2SAT 99
[2016-11-27] MEDS ORDERED: BACT800T5 PO (20:42)
--- NOTE | 2016-11-27 20:46 | PD ---
HPI Chief Complaint: Wound/Suture/Staple Re-Check Time Seen by Provider: 20:43 Travel History International Travel<30 days: No Contact w/Intl Traveler<30days: No Traveled to known affect area: No History of Present Illness HPI 56-year-old white male presents to emergency department for a recheck of an abscess in his left groin. States that he is here to have the packing removed. Pain is improved. He still had some slight drainage but much improved. No fever or chills. Pain is mild. PFSH Past Medical History Blood Disorders: No Cancer: Yes (Right eye) Cardiovascular Problems: No Diminished Hearing: No Endocrine: No Genitourinary: No Immune Disorder: No Implanted Vascular Access Dvce: No Musculoskeletal: No Neurologic: No Psychiatric: No Reproductive: No Respiratory: No Immunizations Current: Yes Past Surgical History Abdominal Surgery: No Cardiac Surgery: No Ear Surgery: No Endocrine Surgery: No Eye Surgery: Yes (R EYE SURGERY) Genitourinary Surgery: No Gynecologic Surgery: No Oral Surgery: No Thoracic Surgery: No Social History Alcohol Use: Yes (8 beers per week) Tobacco Use: Yes (4 per day) Substance Use: No Allergies-Medications (Allergen,Severity, Reaction): Coded Allergies: Cortisone (Verified Allergy, Severe, "Blows me up", 11/27/16) Hydrocortisone (Verified Allergy, Severe, EDEMA, 11/27/16) *MDRO Multi-Drug Resistant Organism (Verified Adverse Reaction, Unknown, ) 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 SKIN: Hypopigmented skin consistent with vitiligo, ecchymoses or lesions. Warm and dry. Draining abscess in the left groin. Skin is indurated, erythematous and mildly tender. No fluctuance or pointing. Packing in place. HEAD: Atraumatic. Normocephalic. EYES: PERRL, EOMI, no discharge or injection. No scleral icterus. EARS: Clear NOSE: Nasal turbinates appear normal. THROAT: Mucosa pink and moist. Airway patent. NECK: Trachea midline. supple, moves head freely. LUNGS: Clear to auscultation. CV: Regular in rhythm. ABDOMEN: Soft nontender. EXT: No clubbing cyanosis or edema. Data Data Last Documented VS Vital Signs Date Time Temp Pulse Resp B/P Pulse Ox O2 Delivery O2 Flow Rate FiO2 11/27/16 20:42 20 11/27/16 20:28 98.1 96 130/73 99 Room Air MDM Medical Decision Making Medical Screen Exam Complete: Yes Emergency Medical Condition: Yes Medical Record Reviewed: Yes Differential Diagnosis MDM: High Differential diagnoses: Abscess, folliculitis, cellulitis, lymphangitis, abrasion, contact dermatitis Narrative Course Patient's packing is removed without incidence. Dressing applied. I reviewed the patient's culture which is resistant to clindamycin. Patient is given prescription for Bactrim DS which is sensitive. Diagnosis Primary Impression: recheck left groin abscess Additional Impression: Vitiligo Patient Instructions: General Instructions Additional Instructions: Rest. Elevation. keep clean and dry. Warm compresses Daily wound care with soap, water and Neosporin. Three Advil every 6 hours. Bactrim DS. Follow-up with a primary care doctor in one week. Return to the ER for any problems. Med/Other Pt SpecificInfo: Prescription(s) given Scripts Sulfamethoxazole-Trimethoprim (Bactrim DS)800-160 Mg Tab1 Tab PO BID #20 TAB Prov:Monico Duvall MD 11/27/16 Disposition: 01 DISCHARGE HOME Condition: Stable Charlie Hernandez November 27, 2016 20:46
== END 2016-11-27 21:09 | disposition home or self-care (01) ==
LOC: NEPK 20:26
DX: L02.214 Cutaneous abscess of groin (principal); L80 Vitiligo; Z51.89 Encounter for other specified aftercare; Z72.0 Tobacco use
CPT/HCPCS: 99282